=== PATIENT | female | born 1980 | race Caucasian/White ===

== ENCOUNTER 2021-12-02 14:43 | Outpatient (CLI) | payer BC, SELFPAY ==
--- NOTE | ~2021-12-02 | MM_ITS ---
EXAMINATION: MM screening katerine BI w jessi HISTORY: Screening TECHNIQUE: Craniocaudal and mediolateral oblique 3-D tomosynthesis images were obtained and synthetic 2-D images were generated. CAD analysis was submitted and interpreted. COMPARISON: Comparison to multiple prior studies sequentially, with oldest reviewed study dated 12/2013. BREAST PARENCHYMAL COMPOSITION: Breast composed of scattered areas of fibroglandular density FINDINGS: There is no evidence of suspicious mass, calcification, or architectural distortion to sugg est malignancy in either breast. There has been no suspicious interval change. IMPRESSION: 1. No mammographic evidence of malignancy. 2. Recommend routine screening mammography in one year. BI-RADS Category 1: Negative Reviewed, dictated and finalized at location A.
== END 2021-12-02 14:44 | disposition home or self-care (01) ==
PROVIDERS: PCP Nurse Practitioner Family; Visit Provider Nurse Practitioner
DX: Z12.31 Encounter for screening mammogram for malignant neoplasm of breast (principal)
CPT/HCPCS: 77063; 77067

== ENCOUNTER 2022-03-05 12:25 | Emergency (ER) | payer BC, SELFPAY ==
[2022-03-05 12:43] VITALS: BP 140/92; PULSE 70; RESP 20; TEMP 36.7; O2SAT 98
--- NOTE | 2022-03-05 13:06 | ED.URI ---
HPI - URI/Sore Throat General Chief Complaint: Upper Respiratory Infection Stated Complaint: Ears clogged Time Seen by Provider: 03/05/22 13:20 Source: patient, RN notes reviewed and old records reviewed Mode of arrival: ambulatory Limitations: no limitations History of Present Illness HPI Narrative: 41-year-old female who presents to [facility] care with complaints of sinus congestion and sinus pressure and has been diagnosed with sinus infection. Patient reports that she has completed 2 rounds of oral antibiotic first being Augment and 2nd being Z-pack with last dose last Monday. Patient reports that she also has been taking Zyrtec, Flonase, and some Sudafed for her symptoms with no resolution. Patient reports that she had Covid January 29 and can't seem to shake the sinus pain congestion and drainage.Patient states that she was told to see ENT and can't get appointment for 1 month. MD elicited complaint: cough, rhinorrhea, nasal congestion, sinus pain and other (ears feel clogged also) Pertinent past history: sinusitis, seasonal allergies and other (COVID January) Pain scale (0-10): 5 Treatments prior to arrival: antibiotics and other (zyrtec, flonase and sudafed) Related Data Home Medications Medication Instructions Recorded Confirmed alprazolam 0.5 mg tablet 0.5 mg PO DAILY 06/06/19 06/06/19 bupropion HCl 300 mg 24 hr tablet, 300 mg PO QAM 06/06/19 06/06/19 extended release ergocalciferol (vitamin D2) 1,250 1,250 mcg PO WEEKLY 06/06/19 06/06/19 mcg (50,000 unit) capsule (Vitamin D2) fluoxetine 20 mg tablet 20 mg PO DAILY 06/06/19 06/06/19 lamotrigine 200 mg tablet 200 mg PO BID 06/06/19 06/06/19 Allergies Allergy/AdvReac Type Severity Reaction Status Date / Time Sulfa (Sulfonamide Allergy Unknown Rash Verified 06/06/19 19:47 Antibiotics) tetracycline Allergy Unknown stomach Verified 06/06/19 19:47 ache and headache Review of Systems Review of Systems: CONSTITUTIONAL: Denies malaise, chills, sweats, or fever. EYES: Denies visual changes, redness, or discharge. ENT: Reports rhinorrhea, congestion, sinus pain, otalgia and sore throat. CARDIOVASCULAR: Denies chest pain, palpitations, or edema. RESPIRATORY: Reports cough.? Denies dyspnea. GASTROINTESTINAL: Denies abdominal pain, nausea, vomiting, diarrhea SKIN: Denies rash or itching. MUSCULOSKELETAL: Denies myalgia. NEUROLOGIC: Denies headache. All systems reviewed & are unremarkable except as noted in HPI and below PMFSH Past Medical History Medical History (Updated 03/07/22 @ 10:59 by Lori Chavez NP) Anxiety and depression Bronchitis DVT (deep vein thrombosis) in Fracture of left wrist GERD (gastroesophageal reflux disease) History of sinus problem Pulmonary embolism UTI (urinary tract infection) Surgical History Surgical History (Updated 03/07/22 @ 10:57 by Lori Chavez NP) H/O hernia repair H/O sinus surgery History of surgical removal of ganglion cyst bilateral History of tonsillectomy Hx of cholecystectomy Previous section Social History Social History (Updated 03/07/22 @ 10:55 by Lori Chavez NP) Smoking status: Never smoker Alcohol intake: current Alcohol use details: social Substance use type: does not use Living arrangements: with family Gender identity (if verbalized by the patient): Female Comments At time of signature, agree with nursing past medical, surgical, social and family history. There is no relevant family history pertinent to the presenting complaint Exam Narrative: GENERAL: Well-appearing, well-nourished, and in no acute distress. HEAD: Normocephalic EYES: PERRLA, conjunctivae clear ENT: Nares clear, turbinates edematous and erythematous, clear discharge. Mucous membranes moist. TM pearly sandoval with normal light reflex bilaterally; no tragal tenderness. Oropharynx erythematous without lesions. Tonsils not present, no
== END 2022-03-05 13:40 | disposition home or self-care (01) ==
PROVIDERS: Emergency Provider Registered Nurse; PCP Nurse Practitioner Family
DX: J32.9 Chronic sinusitis, unspecified (principal); K21.9 Gastro-esophageal reflux disease without esophagitis; Z86.711 Personal history of pulmonary embolism; Z86.718 Personal history of other venous thrombosis and embolism; F41.9 Anxiety disorder, unspecified; F32.A Depression, unspecified
CPT/HCPCS: 99213; G0463

== ENCOUNTER 2022-12-05 10:08 | Outpatient (CLI) | payer BC, SELFPAY ==
--- NOTE | ~2022-12-05 | MM_ITS ---
EXAMINATION: MM screening katerine BI w jessi HISTORY: Screening mammogram TECHNIQUE: Craniocaudal and mediolateral oblique 3-D tomosynthesis images were obtained and synthetic 2-D images were generated. CAD analysis was submitted and interpreted. COMPARISON: 12/02/2021, 10/23/2020, 08/15/2019 bilateral screening mammogram examinations BREAST PARENCHYMAL COMPOSITION: There are scattered areas of fibroglandular density. FINDINGS: There is no evidence of suspicious mass, calcification, or architectural distortion to sugg est malignancy in either breast. There has been no suspicious interval change. IMPRESSION: 1. No mammographic evidence of malignancy. 2. Recommend routine screening mammography in one year. BI-RADS Category 1: Negative Reviewed, dictated and finalized at location A.
== END 2022-12-05 10:09 | disposition home or self-care (01) ==
LOC: ANHIMG 10:11
PROVIDERS: PCP Family Medicine; Visit Provider Advanced Practice Midwife
DX: Z12.31 Encounter for screening mammogram for malignant neoplasm of breast (principal)
CPT/HCPCS: 77063; 77067